=== PATIENT | female | born 1965 | race American Indian/Alaskan Native ===

== ENCOUNTER 2017-05-22 12:00 | Outpatient (CLI) | payer OTHER ==
--- NOTE | 2017-05-23 08:01 | Mammography Report ---
BILATERAL DIGITAL SCREENING MAMMOGRAM with CAD : 05/22/17 12:00:00 CLINICAL: Routine screening. COMPARISON:None available. FINDINGS: The breasts are heterogeneously dense, which may obscure small masses. No mass, architectural distortion or suspicious calcifications. IMPRESSION: No mammographic evidence of malignancy. BI-RADS CATEGORY: 2 -- Benign RECOMMENDATION: Routine mammographic screening in one year. COMMENT: Patient follow-up letters are generated by our [place] [employer] application.
== END 2017-05-22 12:01 | disposition home or self-care (01) ==
LOC: SPVIMAG 12:00
PROVIDERS: ATTEND Obstetrics & Gynecology
DX: Z12.31 Encounter for screening mammogram for malignant neoplasm of breast (principal)
CPT/HCPCS: 77067; G0202